=== PATIENT | male | born 1965 | race Caucasian/White ===

== ENCOUNTER 2019-03-28 07:26 | Inpatient (IN) | payer BC, SELFPAY ==
--- NOTE | 2019-03-23 15:50 | EKG12_ITS ---
Test Reason : PRE-OP Blood Pressure : / mmHG Vent. Rate : 092 BPM Atrial Rate : 092 BPM P-R Int : 170 ms QRS Dur : 094 ms QT Int : 370 ms P-R-T Axes : 045 -06 026 degrees QTc Int : 457 ms Normal sinus rhythm Normal ECG Confirmed by JESUS ALBERTO CARSON, CARMEN ([id number]), editor at large JAGJIT INFANTE ([id number]) on 03/28/2019 1:20:37 PM Referred By: Pete Valdze Confirmed By:CARMEN GRANDA MD
[2019-03-23 16:23] LABS: Hematocrit 43.2 % (40-54); Hemoglobin 15.2 g/dl (13.0-16.5); Mean Corp Hgb Conc 35.2 g/gl (32-36); Mean Corpuscular Hgb 34.4 pg (27.0-32.0); Mean Corpuscular Volume 97.7 fL (80-94); Mean Platelet Vol. 9.3 fl (6.2-12.0); Platelet Count 256 K/mm3 (150-450); RBC Distribution Width CV 14.8 % (11.6-14.6); RBC Distribution Width SD 51.8 fl (35.1-43.9); Red Blood Count 4.42 M/mm3 (4.6-6.2); White Blood Count 7.5 K/mm3 (4.4-11.0)
[2019-03-23 16:28] LABS: International Normalized Ratio 1.1; Prothrombin Time (Protime)PT. 13.8 SECONDS (11.7-14.9)
[2019-03-23 16:29] LABS: Partial Thromboplast Time 29.2 Seconds (24.1-36.2)
[2019-03-23 16:39] LABS: Scan Indicated on CBC? Y/N NO
[2019-03-23 17:02] LABS: AST(SGOT) 18 U/L (15-37); Alanine Aminotransfer ALT/SGPT 21 U/L (16-61); Albumin, Serum 3.9 g/dL (3.2-5.0); Alkaline Phosphatase 79 U/L (45-117); Anion Gap 8 (5-15); BUN 11 mg/dL (7-18); BUN/Creat Ratio 13.9 RATIO (10-20); Bilirubin, Direct 0.11 mg/dL (0.00-0.30); Calcium,Total 8.9 mg/dL (8.5-10.1); Chloride 106 mmol/L (98-107); Creatinine, Serum 0.79 mg/dL (0.70-1.30); EST Glomerular Filtration Rate 108 mL/min (>60); Est Glom Filt Rate - Afr Amer 131 mL/min (>60); Globulin 3.5 g/dL (2.2-4.2); Glucose 80 mg/dL (74-106); Potassium 3.9 mmol/L (3.5-5.1); Protein, Total 7.4 g/dL (6.4-8.2); Sodium Level 138 mmol/L (136-145)
--- NOTE | 2019-03-25 13:06 | PCM.HP.BLA ---
History and Physical Date of Admission: 03/28/19 HISTORY AND PHYSICAL - COLON RESECTION FOR?ASCENDING COLON MASS, LIKELY CANCER ? Evans Garcia 1965 March 25, 2019 ? REFERRING PHYSICIAN: ??Elian Lazcano MD ? CHIEF COMPLAINT:??Right colon mass ? HPI: The patient is a 53 year old male with a?family history of colon cancer in his mother's side who presented for screening colonoscopy. ?The patient underwent colonoscopy on November 10, 2018?which demonstrated a bulky two thirds circumference mass at the cecal ascending colon junction. ?Multiple biopsies were obtained. ?The site was tattooed with Concepción ink and a clip was placed. ?Post procedure KUB demonstrated this to be at the cecum ascending colon junction.??There was an additional smaller polyp in the distal transverse colon.??Pathology returned as: ? FINAL DIAGNOSIS 1. Ascending colon mass, biopsy (A) - Multiple fragments of tubulovillous adenoma with high-grade dysplasia (see comment). 2. Distal transverse colon polyp, biopsy (B) - Tubular adenoma. JEL/kll 03/21/2019? ? ? Clinically this appears to be invasive cancer and I discussed with the patient's most likely just superficial biopsies demonstrating the tubulovillous adenoma with high-grade dysplasia. ? Plan preoperative laboratory studies were obtained. ?CBC was generally unremarkable without signs of iron deficiency anemia. ?Temperature metabolic panel likely was unremarkable. ?His CEA level returned as 2.4-normal range. ? The patient is being seen by me today at the request of Dr.?Elian Lazcano MD?for my opinion and advice regarding right colon mass.? ? PAST?MEDICAL?HISTORY PAST MEDICAL HISTORY Diagnosis Date ? Acute idiopathic gout of multiple sites 02/11/2019 ? Hypertension ? ? borderline no meds ? Snoring ? ? Sterilization 07/20/2008 ? ? PAST?SURGICAL?HISTORY PAST SURGICAL HISTORY Procedure Laterality Date ? COLONOSCOPY AND BIOPSY ? 03/18/2019 ? PAST SURGICAL HISTORY OF ? 08/2007 ? wisdom teeth extraction ? REMOVAL ADENOIDS,PRIMARY,<12 Y/O ? 1978 ? Adenoidectomy ? REMOVAL OF TONSILS,<12 Y/O ? 1978 ? Tonsillectomy ? VASECTOMY ? 09/08/08 ? ? CURRENT?MEDICATIONS Current Outpatient Medications Medication Sig Dispense Refill ? peg 3350-Electrolytes (GOLYTELY) 236-22.74-6.74 -5.86 gram suspension Take 4,000 mL by mouth one time only for 1 dose. 1 Bottle 0 ? neomycin 500 mg tablet Take 2 tablets by mouth four times daily. 2 TABLETS AT 6, 8 ,AND 10 PM 6 tablet 0 ? metroNIDAZOLE (FLAGYL) 500 mg tablet Take 1 tablet by mouth three times daily. 2 TABLETS AT 6, 8, AND 10 PM 6 tablet 0 ? allopurinol (ZYLOPRIM) 100 mg tablet Take 2 tablets by mouth once daily. 60 tablet 3 ? indomethacin (INDOCIN) 50 mg capsule Take 1 capsule by mouth three times daily as needed (joint pain). 30 capsule 2 ? No current facility-administered medications for this visit.? ? ALLERGIES:?Patient has no known allergies. ? PERSONAL HISTORY:? 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 control/protection: Condom ??Other Topics ?Concerns: ?Not on file ??Social History Narrative ?Not on file ? FAMILY HISTORY:? FAMILY?HISTORY FAMILY HISTORY Problem Relation Age of Onset ? Cancer Mother ?colon? ? Hypertension Father ? ? other (gout) Father ? ? Breast Cancer Sister ? ? Diabetes Paternal Grandfather ? ? REVIEW OF SYMPTOMS: ??The review of systems data was entered by the nurse and reviewed by me ? Nursing Notes: Laureen Nixon Maloney Ma ?03/25/2019 ?9:06 AM ?Signed REVIEW OF SYSTEMS: ?General:???The patient denies fatigue, denies weight loss, denies weight gain, denies feeling hot, and denies feelings of cold. ?Eyes: ?The patient denies glaucoma, denies eye injury/surgery, wears glasses or contacts. ?Ear/Nose/Throat: ?The patient denies allergies, denies hayfever, denies ear infections, and denies bloody noses. ?Cardiovascular: ?The patient denies chest pain, denies heart disease, denies high blood pressure,denies cardiac stent, denies prior heart attack, denies irregular heart beat, denies high cholesterol, ?denies poor circulation, denies heart failure, other cardiac issues, denies claudication, denies cold feet, denies peripheral arterial stent. ?Respiratory: ?The patient denies tuberculosis, denies pneumonia, denies frequent cough, denies pulmonary embolism, denies shortness of breath, and denies coughing up blood. ?Gastrointestinal: ?The patient denies difficulty swallowing, denies acid reflux, denies ulcers, denies vomiting, denies jaundice/hepatitis, denies gallbladder problems, denies black or tarry stools, NOTES hemorrhoids, denies bleeding from rectum, denies diverticulitis, denies constipation, denies diarrhea, denies loss of stool control, and denies hernias. ?Kidney/Bladder: ?The patient denies kidney stones, denies urine infections, and denies bloody urine. ?Skin: ?The patient denies a history of skin cancer, denies bleeding/changing moles, and denies a history of skin rash. ?Neurologic: ?The patient denies a history of epilepsy/convulsions, denies headaches, denies head/spinal injuries, and denies stroke/TIA. ?Psychiatric: ?The patient denies psychiatric medications, denies depression, and denies voices, denies substance abuse. ?Endocrine: ?The patient denies thyroid disorders, denies diabetes, and denies hormonal problems. ?Hematologic: ?The patient denies a history of bruising, denies bleeding, and denies anemia, denies blood clots. ?Infections: ?The patient denies a history of measles and mumps, denies rheumatic fever, and denies sexually transmitted diseases. ?Musculoskeletal: ?The patient denies back pain/injury, denies back problems, denies sciatica, denies knee/foot trouble, denies arthritis, or NOTES gout. ? ? When was patient's last Mammogram screening? N/A ? ?Last Colonoscopy: ?03/18/19 ? Laureen Maloney Ma ? PHYSICAL EXAMINATION: ? General: ?The patient is 53 year old male, well nourished, well hydrated in no acute distress. ?The patient is oriented to time, place, and person. ? VITALS:?BP 138/84 ? Pulse 86 ? Temp 36.9 ?C (98.4 ?F) ? Resp 16 ? Ht 177.8 cm (5' 10) ? Wt 97.5 kg (215 lb) ? BMI 30.85 kg/m? ?Body mass index is 30.85 kg/m?.? ? HEENT: ?Normal cephalic, ataumatic, pupils are equally round, sclera are anicteric, mucous membranes are moist, oropharynx is clear. ?Neck has no masses, asymmetry or lymphadenopathy. ?Thyroid is unremarkable. ? Respiratory: ?Clear to auscultation and percussion. ?Normal respiratory excursion and pattern. ? Cardiac: ?Examination is regular rate and rhythm. ? Abdominal exam: ?Soft, nontender, ?with no palpable masses. ?No hepatosplenomegaly. ?No palpable hernias. ? Rectal exam: ?exam deferred ? Extremities: ?no clubbing, cyanosis or edema. ?No adenopathy. ? LABORATORY VALUES: As Noted ? RADIOLOGIC STUDIES: ?As Noted ? Assessment ? IMPRESSION:?Right sided bulky mass consistent with colon cancer ? PLAN: ? We extensively discussed the diagnosis and discussed the surgical options. ??The patient has elected to undergo colon resection ? I plan to perform a?Laparoscopic colectomy partial right hemicolectomy- 90547-820. ?The planned surgical procedure was discussed extensively with the patient. ?The risks, benefits, anticipated outcomes and possible complications and alternatives were discussed. ?My staff has also explained the procedure in understandable terms and the patient was given the option to take printed material concerning the planned procedure. ?The patient had the opportunity to ask questions concerning the planned procedure. ?The patient freely consents to the planned procedure. ?? ? I will plan for?outpatient bowel preparation including mechanical and antibiotic preparation including Neomycin and Flagyl 1gm each at 6,8, and 10pm the night before surgery. ? Anticipated Surgical Procedure/ CPT Code:?Laparoscopic colectomy partial right hemicolectomy- 56148-728 ? Anticipated Anesthetic:?General ? Patient weight:??Blood pressure 138/84, pulse 86, temperature 36.9 ?C (98.4 ?F), resp. rate 16, height 177.8 cm (5' 10), weight 97.5 kg (215 lb).?BMI: ?Body mass index is 30.85 kg/m?. ? Planned antibiotic:?Cefotetan?2gm IVPB booster station operator to OR ? SCDs needed -?Yes ? Straightener Gun Parts Needed -?Yes ?? ? Diagnoses:?(C18.2) Malignant neoplasm of ascending colon (HCC) ?(primary encounter diagnosis) ? Return to Clinic: The patient is instructed to follow-up with me?1 week post operatively. ? Pete Valdez MD
[2019-03-28] VITALS (14 sets, daily range): BP systolic 101–134; BP diastolic 68–92; PULSE 60–98; RESP 16–20; TEMP 36.1–37.1; O2SAT 83–98; BMI 30.6; BMI 30.7
--- NOTE | 2019-03-28 | IMM_PTH ---
PATIENT: TAMMY MILES LOC: MS2 U#:[id number] AGE/SX: 53/M ROOM: [facility] RE03/28/[address]: Dr. Pete Valdez MD : 1965 BED: 1 DIS: 03/30/2019 SPEC #: [id number] RECD: 03/30/19 14:27 STATUS: NADIA REQ #: [id number] KARY: 03/28/19 00:[address]: Pete Valdez DEPT: IMMUNOHISTOCHEMISTRY RECD BY: Liane Salgado ENTERED: 03/30/19 14:31 SP TYPE: IMMUNO OTHR DR: Dr. Elian Lazcano MD Tissues: Colon, NOS Procedures: MSH2 (add) MLH-1 (add) MSH6 (add) Anti-PMS2 (add) GOMEZ-2 (add) KI-67 (add) P53 (add) CDX2 (add) HER-2-PAYAL (initial) PHYSICIAN & [address] [address] SPECIMEN INFORMATION: Tissue Source: Colon and colon mass, hemicolectomy Clinical Info: Ascending colon mass Specimen Number: [id number] #10 CPT code: 05395, 35251 x8 METHODOLOGY: Deparaffinized sections of prefer/formalin-fixed tissue or PAP/DQ stained slides are incubated with monoclonal/polyclonal antibodies/oligonucleotide probes. Localization is made via biotin free immunoperoxidase method. Appropriate controls are performed and reacted as expected. Results on target cell population are indicated in the following table: RESULTS: ANTIBODY / CLONE RESULT Block 10 Ki-67 (30-9) positive, moderate to high P53 (DO-7) positive, 2% dim GOMEZ-2 (SP21) positive MLH-1 (M1) positive MSH2 (25D12) positive MSH6 (44) positive PMS2 (TYY7274) positive Her-2neu (CB11) negative, 0-1+ CDX2 ([id number]) positive These tests were developed and their performance characteristics determined by [facility]. They may not have been cleared or approved by the U.S. Food and Drug Administration. The FDA has determined that such clearance or approval is not necessary. INTERPRETATION: Colon and colon mass, hemicolectomy: Invasive adenocarcinoma. Result of Microsatellite Instability Study: Negative (no loss of mismatch protein; no microsatellite instability detected). AM:camryn 03/31/19
--- NOTE | 2019-03-28 09:50 | COL._PTH ---
PATIENT: TAMMY MILES LOC: MS2 U#:[id number] AGE/SX: 53/M ROOM: [facility]211 RE03/28/[address]: Dr. Pete Valdez MD : 1965 BED: 1 DIS: 03/30/2019 SPEC #: [id number] RECD: 03/28/19 13:19 STATUS: NADIA RELamont #: [id number] KARY: 03/28/19 09:[address]: Pete Valdez DEPT: SURGICAL PATHOLOGY RECD BY: Yelena Hutchins ENTERED: 03/28/19 15:33 SP TYPE: COLON OTHR DR: Dr. Elian Lazcano MD Tissues: Colon, NOS Procedures: Surgery Specimen Level HEADER OPERATION: Laparoscopic hemicolectomy PRE-OP DIAGNOSIS: Ascending colon mass biopsy, multiple fragments of tubulovillous adenoma with high-grade dysplasia; distal transverse colon polyp biopsy, tubular adenoma TISSUE SUBMITTED: Colon and colon mass MICROSCOPIC DIAGNOSIS Ascending colon, hemicolectomy: Invasive adenocarcinoma with mucinous features. See cancer checklist below. AM:camryn 03/30/19 COMMENT COLON CANCER SUMMARY: Specimen - ascending colon Procedure - right hemicolectomy Tumor site - cecum Tumor size - 2.5 x 2 x 1.5 cm (from glass slides) Associated polypoid tubulovillous adenoma with high-grade dysplasia - 4 x 4 x 1.5 cm Macroscopic tumor perforation - not present Histologic type - adenocarcinoma with prominent mucinous features Histologic grade - low grade (moderately differentiated) Microscopic tumor extension - tumor invades through muscularis propria into subserosal tissue. Margins: Proximal margin - uninvolved by invasive carcinoma. Distal margin - uninvolved by invasive carcinoma. Circumferential margin - uninvolved by invasive carcinoma. Closest mucosal margin - small bowel margin is 11.0cms from tumor. Treatment effect - not known Lymph-Vascular invasion - not identified Perineural invasion - not identified Tumor deposits - not identified Type of polyp in which invasive carcinoma arose - tubulovillous adenoma with high-grade dysplasia. Lymph nodes: Number of lymph nodes examined - 14 Number of lymph nodes involved - 0 Additional pathologic findings - tubular adenoma Other findings - mucosal donuts with no pathologic change. Appendix with no pathologic change. Ancillary studies: See microsatellite instability study by IHC ([id number]) for complete details. Negative (no loss of mismatch protein; no microsatellite instability detected). PATHOLOGIC STAGE: pT3 N0 Mx The above summary is in compliance with [employer] [place] [employer] (CAP) Cancer Protocols Checklist and [place] Joint Committee on Cancer (AJCC), Staging Manual, 8th Ed. Case has been reviewed in consultation with Dr. Mckeon who concurs with the above diagnosis. IDC:SJ MICROSCOPIC DESCRIPTION Slides are reviewed. GROSS DESCRIPTION Received in fixative is one container labeled with the patient's name and designated colon and colon mass. The specimen consists of a right hemicolectomy specimen, previously opened consistent with segment of cecum and descending colon, segment of small intestine and appendix. The segment of colon, cecum with descending colon measures 22 cm in length. The segment of small intestine measures 8 cm in length and the appendix measures 10.5 cm in length and 0.5 cm in diameter. 3 cm away from the ileocecal valve and 11 cm away from the closest (small bowel) resection margin there is a raised polypoid lesion measuring 4 x 4 x 1.5 cm. A few smaller polyps are also noted distal to the mass. Also present in the container is a detached piece of omentum measuring 9 x 8 x 2 cm. Also present in the container are two pieces of donut measuring 6 x 1.5 x 1.5 cm and 4 x 2 x 2 cm. A metallic clips is also noted distal to the polypoid mass. Pericolonic adipose tissue is fixed in lymph node revealing solution. More dictation will follow after overnight fixation. / SJ:rg 03/28/19 Sections of the appendix reveal the lumen contains small amount of hemorrhagic material. No fecalith is identified. 2 cm away from the polypoid mass, there is a styles-pink polyp measuring 0.8 x 0.5 x 0.5 cm. No additional smaller polyps are identified. Sections of the polypoid mass reveal full thickness involvement of the gallbladder. Sections of the omentum reveal a focal area of hemorrhage. No obvious mass lesion is identified. Sections of pericolonic adipose reveal multiple lymph nodes. The largest lymph node measures 1.5 cm in greatest dimension. Barrel Charrer Helper sections are submitted as follows: 1 & 2 - colonic donut, 3 - proximal and distal resection margins, 4 - appendix, 5 - smaller polyp, entirely submitted, 6-10 - polypoid mass, 11?-?ileocecal valve and small and large intestine, 12 - omentum, 13 - one serially sectioned lymph node, 14 - one serially sectioned lymph node, 15 - multiple lymph nodes, 16-19 - each cassette containing one bisected lymph node, 20 - multiple lymph nodes, 21 - one bisected lymph node, 22 - possible lymph nodes. / ZARA:camryn 03/29/19 TC:0 CPT: 92155
[2019-03-28] MEDS: Bupivacaine 0.25% 30 ML Vial (10:30)
[2019-03-28] MEDS: BUPIVACAINE LIPOSOME/PF 20 ML VIAL OPERA.SITE (12:30)
--- NOTE | 2019-03-28 12:32 | OP.PCM_ITS ---
Report of Operation Date of Procedure: 03/28/19 Pre-Operative Diagnosis: right colon mass - preseumed colon cancer Post-Operative Diagnosis: right colon mass - preseumed colon cancer Surgery/Procedure Performed:: laparoscopic right hemicolectomy Description of Surgical Findings:: as above bacon de rinder: Gary Soto Type of Anesthesia:: General Anesthesiologist: Korey Sauer - ASA2 Specimen's removed: right colon Estimated Blood Loss (mL): 400 Fluids Replaced: 1200 Description of Procedure: The patient was brought to the operating suite. Sign in was performed verifying patient, site, procedure, position, and DVT prophylaxis with SCDs. Patient 2 g of cefotetan. Preoperative bowel prep of mechanical and antibiotic comprised of GoLYTELY and then neomycin and Flagyl 1 g 3 doses evening before was given Following induction of general anesthetic. The patient?s abdomen was prepped and draped in the usual fashion. Timeout was performed verifying patient, site, position. Local anesthetic was injected below the umbilicus. Incision made and dissection carried down to the umbilical root fascia. 2 stay sutures were placed. Incision made in the fascia, the peritoneum entered under direct visualization. A 10 mm Edmond trocar was inserted and secured with the stay sutures. Pneumoperitoneum to 15 mmHg was insufflated. Visual inspection revealed the tattooed area to be in the right cecal ascending colon junction . 2 5mm ports were placed in the standard midline position. Mobilization the avascular plane was undertaken from the base of the cecum up and around the hepatic flexure. Division of the lesser sac from the midline to the hepatic flexure was undertaken. When this was fully mobilized. The duodenum was visualized from the right flank region. Next, the terminal ileum area was brought up and a cleavage point noted in the mesentery. Harmonic Scalpel was used to create a window in the terminal ileal mesentery and division was taken down to the ileocolic root. Next the transverse colon was grasped and the vasculature coming from the middle colic vessel was identified. A window was made in the bare area proximal to the middle colic vessels just overlying the duodenal sweep. This was also fully divided. Dissection was then carried out but due to the patient's body habitus, the base of the ileocolic vessels could not be seen well and attempts to lift on the mesentery cause some venous bleeding. the umbilical incision was extended and a wound protector placed. The terminal ileum and cecum ascending colon part of the transverse colon were delivered through the wound protector. Complete division of the mesentery at the base of the ileocolic branch was undertaken sequentially divided and ligated with Vicryl ties. The bowel was transected with an intestinal load echelon stapler. On this a functional stapled end-to-end anastomosis was performed between the ileum and transverse colon with an echelon stapler. The staple line was checked for hemostasis and following this the anastomosis closed with a TA stapler creating a wide triangle opening that was easily palpable. A 3-0 silk suture was used to take tension off the apex of the staple line and Betadine painted on the TA staple line. At this point, the specimen was opened on the back table. There was noted to be tumor in the expected location. Gown and gloves were changed. The site had clean towels placed and New instruments were used for fascial closure. The umbilical fascial defect was closed with a running 0 PDS suture . Penumoperitenum was reestablished. There was good anatomic positioning of the small bowel. There was good hemostasis along the incisions. A lateral rectus abdominus block was performed with Exparal diluted with bupivacaine to 100cc total volume. Additional mixture was injected in the 5mm port sites and lasts some saved for the skin injection Pneumoperitoneum was reestablished. The 5mm ports were removed under direct visualization with no signs of bleeding. Pneumoperitoneum was released. Subcutaneous fat reapproximated with interrupted 3-0 Vicryl sutures. Skin was closed with interrupted 4-0 Monocryl subcuticular sutures. with Exparal diluted with bupivacaine was injected into the skin. Steri-Strips and bandages were applied. The patient was brought to recovery room in stable condition. - Admit VTE Documentation VTE Present on Admission: No VTE Mechan Device Prophylaxis: SCD's VTE Pharm Prophylaxis ordered?: No
--- NOTE | 2019-03-28 16:21 | NURSING ---
patient up walking in hallways at this time.
[2019-03-28] MEDS: Acetaminophen 500 MG Tablet 1000 MG PO ×2 (18:43→23:05)
[2019-03-28] MEDS: Ketorolac 15 MG/ML Vial IV ×2 (18:43→23:07)
[2019-03-28] MEDS: 0.9% NaCl Peripheral Flush Adult/Peds IV ×2 (18:44→18:50)
--- NOTE | 2019-03-29 00:50 | NURSING ---
Pt ambulating in [place].
[2019-03-29 02:15] VITALS: BP 120/79; PULSE 105; RESP 18; TEMP 36.6; O2SAT 91
--- NOTE | 2019-03-29 05:40 | PCM.PN.SRG ---
Subjective: incisional pain - Physical Exam General: Alert, Oriented x3, Cooperative Lungs: Clear to auscultation, Normal air movement Cardiovascular: Regular rate, No murmurs Abdomen: Soft, Bowel Sounds Not Present, Tender - at incisions Vital Signs Temp Pulse Resp BP Pulse Ox 97.9 F 105 H 18 120/79 91 03/29/19 02:15 03/29/19 02:15 03/29/19 02:15 03/29/19 02:15 03/29/19 02:15 Oxygen Flow Rate (L/min) 1 Oxygen Delivery Method Nasal Cannula Weight: 97.2 kg Body Mass Index (BMI) 30.7 Intake and Output for Last 24 Hours 03/27/19 03/28/19 03/29/19 23:59 23:59 23:59 Intake Total 4173 / 4888 715 / 715 Output Total 725 / 725 Balance 4173 / 4163 -10 / -10 Laboratory Tests Past 24 Hrs 03/29/19 03/29/19 05:14 05:14 WBC Pending RBC Pending Hgb Pending Hct Pending MCV Pending MCH Pending MCHC Pending RDW Pending RDW Differential Pending Plt Count Pending Sodium Pending Potassium Pending Chloride Pending Carbon Dioxide Pending Anion Gap Pending BUN Pending Creatinine Pending Est GFR (MDRD) Af Amer Pending Est GFR (MDRD) Non-Af Pending BUN/Creatinine Ratio Pending Glucose Pending Calcium Pending Medical Necessity - Tobacco Use Smoking Status: Former smoker Tobacco Use: Chew Assessment/Plan POD # 1 s/p laparoscopic right hemicolectomy. challenging due to body habitus, thick mesentery Absent bowel sounds - we be careful with clear liquids SCDs, encourage ambulation, chewing gum, follow I's and O's
[2019-03-29 05:47] LABS: Hemoglobin 12.8 g/dl (13.0-16.5); Mean Corp Hgb Conc 34.6 g/gl (32-36); Mean Corpuscular Hgb 35.1 pg (27.0-32.0); Mean Corpuscular Volume 101.4 fL (80-94); Platelet Count 228 K/mm3 (150-450); RBC Distribution Width CV 14.6 % (11.6-14.6); RBC Distribution Width SD 53.4 fl (35.1-43.9); Red Blood Count 3.65 M/mm3 (4.6-6.2); White Blood Count 12.6 K/mm3 (4.4-11.0)
[2019-03-29 05:53] LABS: Scan Indicated on CBC? Y/N NO
[2019-03-29] MEDS: Acetaminophen 500 MG Tablet 1000 MG PO ×2 (06:01→17:37)
[2019-03-29] MEDS: Ketorolac 15 MG/ML Vial IV ×3 (06:02→17:36)
[2019-03-29 06:12] LABS: Anion Gap 9 (5-15); BUN 13 mg/dL (7-18); BUN/Creat Ratio 14.2 RATIO (10-20); Calcium,Total 8.5 mg/dL (8.5-10.1); Chloride 102 mmol/L (98-107); Creatinine, Serum 0.92 mg/dL (0.70-1.30); EST Glomerular Filtration Rate 91 mL/min (>60); Est Glom Filt Rate - Afr Amer 110 mL/min (>60); Estimated Creatinine Clearance 93.67 ml/min; Glucose 121 mg/dL (74-106); Potassium 4.3 mmol/L (3.5-5.1); Sodium Level 138 mmol/L (136-145)
[2019-03-29 08:11] VITALS: BP 131/87; PULSE 88; RESP 18; TEMP 36.7; O2SAT 96
[2019-03-29] MEDS: Allopurinol 100 MG Tablet 200 MG PO (08:15)
--- NOTE | 2019-03-29 09:40 | CASEMGMT ---
RN CM Assessment Presentation: Lap hemicolectomy Intro role of CM and purpose of RN CM assessment to patient. He is awake, alert and able to participate in assessment. Demographics, PCP and Pharmacy verified. Pt is anxious to return home on discharge. Has assist if needed. Pt is taking clear liquids now. He plans to f/u with Dr. Valdez on dc and denies difficulty with f/u or prescriptions. PCP: Dr. Lazcano Specialists: Dr. Valdez Preferred Pharmacy: [facility] Pharmacy Insurance: [place] Prescription Benefit: yes LNOK: Evans Garcia Living Arrangements: Lives independently. Girlfriend able to assist on dc. Transportation: Drives or family can drive. DME: none HHC: none Patient DC goals: Home on dc DC PLAN: Home on dc Kp TRIANA RN ACM
[2019-03-29 13:57] VITALS: BP 122/85; PULSE 83; RESP 18; TEMP 36.8; O2SAT 94
[2019-03-29] MEDS: Ensure Clear 120 ML Liquid PO ×2 (17:36→22:52)
[2019-03-29 19:53] VITALS: BP 113/70; PULSE 84; RESP 16; TEMP 36.7; O2SAT 94
[2019-03-30] MEDS: 0.9% NaCl Peripheral Flush Adult/Peds IV (00:21)
[2019-03-30] MEDS: Acetaminophen 500 MG Tablet 1000 MG PO ×3 (00:21→11:51)
[2019-03-30] MEDS: Ketorolac 15 MG/ML Vial IV (00:21)
[2019-03-30 02:00] VITALS: BP 111/74; PULSE 77; RESP 16; TEMP 36.9; O2SAT 92
[2019-03-30 08:09] VITALS: O2SAT 96
[2019-03-30 08:25] VITALS: BP 123/75; PULSE 83; RESP 18; TEMP 36.4; O2SAT 96
[2019-03-30] MEDS: Allopurinol 100 MG Tablet 200 MG PO (08:29)
[2019-03-30] MEDS: Ensure Clear 120 ML Liquid PO (08:30)
--- NOTE | 2019-03-30 09:25 | DCINST_ITS ---
Discharge Diet: Light diet - advance as tolerated - If you have questions about your diet instructions, please talk to your doctor. Discharge Activity: May Not Drive - for 1 week or while taking narcotic pain meds. May shower in (days): 1 Lifting Restrictions: 10 pounds Call your doctor if your incision/area has: Continuous Slow Oozing, Sudden Increased Bleeding, Increased Pain/ Swelling, Increased Redness, Foul Smelling Discharge Call your doctor if you observe: Fever of 101 or Higher Suture Line Care: Avoid Pulling/Pushing, Avoid Pinching/Bending Additional Dressing/Incision Instructions:: Change or remove dressing in 4 days. Leave steri-strips in place for 1 week. Allergies/Adverse Reactions: Allergies Penicillins [PCN] Adverse Reaction (Verified 03/22/19 15:29) Diarrhea Medications to take at Discharge Allopurinol 200 mg PO DAILY 03/22/19 Indomethacin 50 mg PO PRN PRN 03/22/19 Primary Care Physician: Elian Lazcano MD [Primary Care Provider] - Test Results: Test results from this visit will be discussed in further detail at your follow- up appointment, if applicable. Please Follow Up With: Pete Valdez MD - [phone] When: Call to make an appointment to be seen in about 10 days.
[2019-03-30 09:26] VITALS: O2SAT 95; O2SAT 96
[2019-03-30 13:36] VITALS: BP 131/89; PULSE 94; RESP 18; TEMP 36.4; O2SAT 94
--- NOTE | 2019-03-31 05:23 | PCM.DC.SUM ---
Discharge Date and Diagnosis Date of Admission: 03/28/19 Date of Discharge: 03/30/19 - Primary Discharge Diagnosis colon mass, colon cancer Hospital Course and Treatment Operations: colectomy Summary of Care Provided: The patient is a 53 year old M with a bulky cecal ascending colon tumor. Patient underwent outpatient bowel prep and was brought to [facility] for definitive surgery. Patient with a laparoscopic right hemicolectomy on March 28, 2019. Patient return of bowel function on postoperative day 1 with good pain control was able to be discharged home on postoperative day 2 with instructions to follow-up in my office. - Physical Exam General: Alert, Oriented x3, Cooperative Lungs: Clear to auscultation, Normal air movement Cardiovascular: Regular rate, No murmurs Abdomen: Bowel Sounds Present, Soft, Non Tender Vital Signs Temp Pulse Resp BP Pulse Ox 97.6 F L 94 18 131/89 H 94 03/30/19 13:36 03/30/19 13:36 03/30/19 13:36 03/30/19 13:36 03/30/19 13:36 Oxygen Flow Rate (L/min) 1 Oxygen Delivery Method Room Air Weight: 97.2 kg Body Mass Index (BMI) 30.7 Intake and Output for Last 24 Hours 03/29/19 03/30/19 03/31/19 23:59 23:59 23:59 Intake Total 1682 / 2302 1180 / 1180 Output Total 1550 / 1550 Balance 132 / 752 1180 / 1180 Discharge Diet: Light diet - advance as tolerated - If you have questions about your diet instructions, please talk to your doctor. Discharge Activity: May Not Drive - for 1 week or while taking narcotic pain meds. May shower in (days): 1 Call your doctor if your incision/area has: Continuous Slow Oozing, Sudden Increased Bleeding, Increased Pain/ Swelling, Increased Redness, Foul Smelling Discharge Call your doctor if you observe: Fever of 101 or Higher Suture Line Care: Avoid Pulling/Pushing, Avoid Pinching/Bending Additional Dressing/Incision Instructions:: Change or remove dressing in 4 days. Leave steri-strips in place for 1 week. Home Medications: Medications to take at Discharge Allopurinol 200 mg PO DAILY 03/22/19 Indomethacin 50 mg PO PRN PRN 03/22/19 Primary Care Physician: Elian Lazcano MD [Primary Care Provider] - Please Follow Up With: Pete Valdez MD - [phone] When: Call to make an appointment to be seen in about 10 days. Medical Necessity - Tobacco Use Smoking Status: Former smoker Tobacco Use: Chew Meaningful Use Info Meaningful Use Diagnoses (Choose all that apply): None applicable
== END 2019-03-30 14:00 | disposition home or self-care (01) | DRG 331 ==
LOC: ACINP 07:28 → MS2 09:43
PROVIDERS: Admitting Provider Surgery; Family Provider Internal Medicine; PCP Internal Medicine; Referring Provider Surgery; Visit Provider Surgery
PROC: 0DTF4ZZ Resection of Right Large Intestine, Percutaneous Endoscopic Approach (ICD-10-PCS; principal; 2019-03-28 09:30)
DX: C18.2 Malignant neoplasm of ascending colon (principal); Z80.0 Family history of malignant neoplasm of digestive organs; Z72.0 Tobacco use
CPT/HCPCS: 36415; 80048; 80076; 85027; 85610; 85730; 88309; 88341; 88342; 93005; 94762; 99406; J7120; A4216; J2405